=== PATIENT | female | born 1990 | race African-American/Black ===

== ENCOUNTER 2020-06-29 07:03 | Emergency (ER) | payer OTHER ==
[~2020-06-29] VITALS: Ht 165.1 cm; Wt 57.0 kg
[2020-06-29 07:07] VITALS: BP 116/80
[2020-06-29] MEDS ORDERED: TETANUS, DIPHTHERIA, PERTUSSIS VAC/PF 0.5ML (>7YR OLD) IM ONE (09:15)
== END 2020-06-29 09:23 | disposition home or self-care (01) ==
LOC: ER 07:03
DX: S61.211A Laceration without foreign body of left index finger without damage to nail, initial encounter (principal); D56.0 Alpha thalassemia; W26.0XXA Contact with knife, initial encounter; Y93.89 Activity, other specified; Y92.018 Other place in single-family (private) house as the place of occurrence of the external cause
CPT/HCPCS: 12001; 90471; 90715; 99283; A4217